=== PATIENT | female | born 1970 | race Hispanic/Latino ===

== ENCOUNTER 2019-10-20 20:22 | Inpatient (IN) | payer OTHER ==
[~2019-10-20] VITALS: Ht 152.4 cm; Wt 27.7 kg
[2019-10-20 20:59] LABS: BASOPHILS % (AUTO) 0.5 % (0.0-5.0); EOSINOPHILS % (AUTO) 0.3 % (0.0-8.0); HEMATOCRIT 23.6 % (36-48); LYMPHOCYTES % (AUTO) 4.2 % (21.0-51.0); MEAN CORPUSCULAR HEMOGLOBIN 27.7 pg (27.0-33.0); MEAN CORPUSCULAR HGB CONC 31.8 g/dL (32.0-36.0); MEAN CORPUSCULAR VOLUME 87.1 fL (79-99); MONOCYTES % (AUTO) 5.8 % (3.0-13.0); NEUTROPHILS % (AUTO) 88.5 % (40.0-77.0); PLATELET COUNT (AUTO) 158 K/uL (130-400); RED BLOOD CELL COUNT(AUTO) 2.71 MIL/uL (4.00-5.50); RED CELL DISTRIBUTION WIDTH 19.2 % (11.0-15.5); WHITE BLOOD COUNT (AUTO) 18.9 K/uL (4.8-10.8)
[2019-10-20 21:10] LABS: INR 0.99 (0.85-1.15); PARTIAL THROMBOPLASTIN TIME 33.6 SEC (26.3-35.5); PROTHROMBIN TIME 10.7 SEC (9.6-11.6)
[2019-10-20 21:20] LABS: RETICULOCYTE % (AUTO) 0.16 % (0.42-2.23)
[2019-10-20 21:26] LABS: % IRON SATURATION 4.1 % (22-44)
[2019-10-20] MEDS ORDERED: LEVOFLOXACIN 500 MG/D5W 100 ML 100 ML ONE (21:56)
[2019-10-20] MEDS ORDERED: POTASSIUM BICARB/CIT AC 25 MEQ TABLET.EFF ONE (21:56)
[2019-10-20] MEDS ORDERED: PANTOPRAZOLE 40 MG/VIAL ONE (21:57)
[2019-10-20 21:58] LABS: ALBUMIN 1.8 g/dL (3.5-5.0); BILIRUBIN,TOTAL 0.3 mg/dL (0.2-1.0); TOTAL PROTEIN, SERUM 7.3 g/dL (6.0-8.3)
[2019-10-20 23:50] LABS: APPEARANCE,URINE Turbid (CLEAR); BILIRUBIN,URINE Negative (NEGATIVE); COLOR,URINE Yellow (YELLOW); GLUCOSE, URINE (UA) Negative (NEGATIVE); KETONES,URINE Negative (NEGATIVE); LEUKOCYTE ESTERASE ,URINE Large (NEGATIVE); NITRATE,URINE Negative (NEGATIVE); OCCULT BLOOD,URINE Large (NEGATIVE); PH,URINE 7.5 (5.0-8.0); PROTEIN,URINE POS 2+ mg/dL (NEGATIVE)
[2019-10-20 23:58] LABS: BACTERIA,URINE Many /HPF (None Seen); MUCUS,URINE Rare LPF (None Seen); SQUAMOUS EPITHELIAL CELL,UR Rare /HPF (0-2)
[2019-10-21] VITALS (12 sets, daily range): BP systolic 86–114; BP diastolic 50–67
[2019-10-21 00:07] LABS: ABG BASE EXCESS -6.6 mmol/L (-2.0-3.0); ABG PCO2 29 mmHg (32-45)
[2019-10-21] MEDS ORDERED: ALBUMIN (HUMAN) 25% 50 ML IV ONE (00:34)
[2019-10-21] MEDS ORDERED: ACETAMINOPHEN 325 MG TAB ONE ×3 (00:54→12:34)
[2019-10-21] MEDS: LACTATED RINGERS 1000ML 1,000 ML IV SCH ×2 (01:07→06:50)
[2019-10-21] MEDS: METRONIDAZOLE 500MG/100ML BAG 100 ML IVPB SCH ×3 (01:15→16:16)
[2019-10-21] MEDS ORDERED: DiphenhydrAMINE HCL 50 MG/ML VIAL IV PRN (01:15)
[2019-10-21] MEDS ORDERED: ONDANSETRON HCL 4 MG/2 ML VIAL IV PRN (01:15)
[2019-10-21] MEDS ORDERED: ACETAMINOPHEN 325 MG TAB PO PRN ×2 (01:15)
[2019-10-21] MEDS ORDERED: MAG HYDROX/AL HYDROX/SIMETH 30 ML, LIDOCAINE HCL 2% VISCOUS 30 ML, DIPHENHYDRAMINE HCL ... PO PRN ×3 (01:15)
[2019-10-21] MEDS ORDERED: GUAIFENESIN-DM 200/20 MG 10 ML PO PRN (01:15)
[2019-10-21] MEDS ORDERED: ZOLPIDEM TARTRATE 5 MG TAB PO PRN (01:15)
[2019-10-21] MEDS ORDERED: VANCOMYCIN PROTOCOL PER PHARMACY IV SCH (01:15)
[2019-10-21] MEDS ORDERED: LIDOCAINE HCL 2% VISCOUS 30 ML, MAG HYDROX/AL HYDROX/SIMETH 30 ML, BELLADONNA-PHENOBARB... PO PRN ×3 (01:15)
[2019-10-21] MEDS ORDERED: NITROGLYCERIN 0.4 MG SL TAB SL PRN (01:15)
[2019-10-21] MEDS ORDERED: DIPHENHYDRAMINE HCL 25 MG CAPSULE PO PRN (01:15)
[2019-10-21] MEDS ORDERED: LACTULOSE 20 GM/30 ML UDCUP PO PRN (01:15)
[2019-10-21] MEDS ORDERED: MAG HYDROX/AL HYDROX/SIMETH ES 30 ML SUSP UDCUP PO PRN (01:15)
[2019-10-21] MEDS ORDERED: CEFEPIME 2 GM in SODIUM CHLORIDE 0.9% 100 ML IV SCH (01:15)
[2019-10-21] MEDS ORDERED: NOREPINEPHRINE 4MG/NS 250ML 250 ML IV ONE ×3 (02:01→14:20)
[2019-10-21] MEDS ORDERED: CEFEPIME HCL 2 GM VIAL ONE ×2 (02:34→10:46)
[2019-10-21] MEDS ORDERED: LORAZEPAM 2 MG/ML 1 ML VIAL ONE (03:32)
[2019-10-21] MEDS ORDERED: DILTIAZEM HCL 125 MG/25 ML VIAL IV ONE (03:33)
[2019-10-21] MEDS ORDERED: IBUPROFEN 600 MG TABLET ONE (04:44)
[2019-10-21] MEDS ORDERED: DILTIAZEM HCL 5 MG/ML 5 ML VIAL IVP PRN (05:00)
[2019-10-21] MEDS ORDERED: DIATR MEGLU/DIATRIZOATE SODIUM 30 ML BOTTLE ONE (05:26)
[2019-10-21 05:54] LABS: % IRON SATURATION 7.8 % (22-44)
[2019-10-21] MEDS ORDERED: METRONIDAZOLE 500MG/100ML BAG 100 ML ONE (05:57)
[2019-10-21] MEDS: CEFEPIME HCL 2 GM VIAL IVP SCH ×3 (06:00→21:16)
[2019-10-21 06:17] LABS: BASOPHILS % (AUTO) 0.8 % (0.0-5.0); EOSINOPHILS % (AUTO) 0.3 % (0.0-8.0); HEMATOCRIT 29.9 % (36-48); LYMPHOCYTES % (AUTO) 1.9 % (21.0-51.0); MEAN CORPUSCULAR HEMOGLOBIN 28.4 pg (27.0-33.0); MEAN CORPUSCULAR HGB CONC 32.1 g/dL (32.0-36.0); MEAN CORPUSCULAR VOLUME 88.5 fL (79-99); MONOCYTES % (AUTO) 0.7 % (3.0-13.0); NEUTROPHILS % (AUTO) 95.8 % (40.0-77.0); PLATELET COUNT (AUTO) 62 K/uL (130-400); RED BLOOD CELL COUNT(AUTO) 3.38 MIL/uL (4.00-5.50); RED CELL DISTRIBUTION WIDTH 16.9 % (11.0-15.5); WHITE BLOOD COUNT (AUTO) 15.5 K/uL (4.8-10.8)
[2019-10-21] MEDS ORDERED: IOHEXOL 350 MG/ML 100ML INFUS..BTL IV ONE (08:42)
[2019-10-21] MEDS: FAMOTIDINE/PF 20 MG/2 ML VIAL IV SCH ×2 (09:00→21:16)
[2019-10-21 09:53] LABS: EOSINOPHILS % (AUTO) 0.3 % (0.0-8.0); HEMATOCRIT 28.5 % (36-48); LYMPHOCYTES % (AUTO) 1.3 % (21.0-51.0); MEAN CORPUSCULAR HEMOGLOBIN 28.9 pg (27.0-33.0); MEAN CORPUSCULAR HGB CONC 33.7 g/dL (32.0-36.0); MEAN CORPUSCULAR VOLUME 85.8 fL (79-99); MONOCYTES % (AUTO) 4.1 % (3.0-13.0); NEUTROPHILS % (AUTO) 91.6 % (40.0-77.0); PLATELET COUNT (AUTO) 66 K/uL (130-400); RED BLOOD CELL COUNT(AUTO) 3.32 MIL/uL (4.00-5.50); RED CELL DISTRIBUTION WIDTH 17.2 % (11.0-15.5)
[2019-10-21 10:02] LABS: WHITE BLOOD COUNT (AUTO) 34.1 K/uL (4.8-10.8)
[2019-10-21 10:11] LABS: ALBUMIN 1.4 g/dL (3.5-5.0); BILIRUBIN,TOTAL 1.3 mg/dL (0.2-1.0); CREATININE 0.8 mg/dL (0.5-1.5); TOTAL PROTEIN, SERUM 5.4 g/dL (6.0-8.3)
[2019-10-21 10:23] LABS: BAND NEUTROPHILS % (MANUAL) 19 % (0-2); MAN.DIFF COMMENT-IMPRESSION MANUAL DIFFERENTIAL; MONOCYTES % (MANUAL) 4 % (2-9); PLATELET MORPHOLOGY COMMENT DECREASED; SEGMENTED NEUTROPHILS % 77 % (40-70)
[2019-10-21] MEDS ORDERED: OCTREOTIDE ACETATE 1,250 MCG in SODIUM CHLORIDE 0.9% 250 ML IV SCH (11:35)
[2019-10-21] MEDS ORDERED: DILTIAZEM 125MG+100 ML NS 125 ML IV SCH (11:45)
[2019-10-21] MEDS ORDERED: COMPOUND IV MISC 1 EACH IVSOLN MISC PRN (12:45)
[2019-10-21] MEDS ORDERED: COMPOUND IV REFRIGERATED 1 EACH IVSOLN MISC PRN (12:45)
--- NOTE | 2019-10-21 12:48 | NUR ---
YAEL NOTE/IA UNABLE TO MEET WITH PATIENT IN ROOM, NEXT OF KIN CALLED, COLBY CISNEROS. PER SIBLING, PATIENT LIVES WITH FAMILY, IS DEPENDENT WITH ADLS, BED BOUND, NO DME, AND HAS USE OF [facility] [address]. PER PATIENT, OK WITH RECEIVING PATIENT BACK HOME ONCE DISCHARGED AND STABLE. Addendum: 10/21/19 at 1712 by ISRAEL DRISCOLL RN CM Amended: Links added.
[2019-10-21] MEDS ORDERED: PANTOPRAZOLE 40 MG/VIAL ONE (13:21)
[2019-10-21] MEDS ORDERED: SODIUM CHLORIDE 0.9% 100 ML IV ONE (13:22)
[2019-10-21] MEDS: VANCOMYCIN 500MG+NS 100ML 100 ML IV SCH ×2 (15:06→21:14)
[2019-10-21] MEDS: VASOPRESSIN 20 UNITS in SODIUM CHLORIDE 0.9% 100 ML IV SCH (17:44)
[2019-10-21] MEDS: NOREPINEPHRINE 4MG/NS 250ML 250 ML IV PRN (17:49)
[2019-10-21] MEDS: PANTOPRAZOLE SODIUM 80 MG in SODIUM CHLORIDE 0.9% 100 ML IV SCH (18:55)
[2019-10-21] MEDS ORDERED: LACTATED RINGERS 1000ML 2,000 ML IV ONE (19:55)
[2019-10-21 20:46] LABS: HEMATOCRIT 31.1 % (36-48)
[2019-10-21] MEDS: BISACODYL 10 MG SUPP.RECT RC SCH (21:15)
[2019-10-21] MEDS: FENTANYL CITRATE PF 50 MCG/1 ML 2ML VIAL IVP PRN (23:12)
--- NOTE | 2019-10-21 23:45 | NUR ---
Nurse performed Manual Disimpaction. VSS. Large amount of stool collected. Will continue to monitor patient.
[2019-10-22] VITALS (43 sets, daily range): BP systolic 90–131; BP diastolic 41–70
[2019-10-22] MEDS: METRONIDAZOLE 500MG/100ML BAG 100 ML IVPB SCH ×2 (01:21→08:08)
[2019-10-22 03:30] LABS: BASOPHILS % (AUTO) 0.4 % (0.0-5.0); EOSINOPHILS % (AUTO) 0.6 % (0.0-8.0); HEMATOCRIT 30.1 % (36-48); LYMPHOCYTES % (AUTO) 5.4 % (21.0-51.0); MEAN CORPUSCULAR HEMOGLOBIN 29.4 pg (27.0-33.0); MEAN CORPUSCULAR HGB CONC 34.9 g/dL (32.0-36.0); MEAN CORPUSCULAR VOLUME 84.3 fL (79-99); MONOCYTES % (AUTO) 3.9 % (3.0-13.0); NEUTROPHILS % (AUTO) 88.3 % (40.0-77.0); PLATELET COUNT (AUTO) 103 K/uL (130-400); RED BLOOD CELL COUNT(AUTO) 3.57 MIL/uL (4.00-5.50); RED CELL DISTRIBUTION WIDTH 16.3 % (11.0-15.5); WHITE BLOOD COUNT (AUTO) 19.8 K/uL (4.8-10.8)
[2019-10-22 03:41] LABS: ALBUMIN 1.9 g/dL (3.5-5.0); BILIRUBIN,TOTAL 1.3 mg/dL (0.2-1.0); TOTAL PROTEIN, SERUM 6.1 g/dL (6.0-8.3)
[2019-10-22 03:44] LABS: POTASSIUM 2.6 mmol/L (3.5-5.1)
[2019-10-22] MEDS: CEFEPIME HCL 2 GM VIAL IVP SCH ×2 (05:27→13:01)
[2019-10-22] MEDS: VANCOMYCIN 500MG+NS 100ML 100 ML IV SCH (08:10)
[2019-10-22] MEDS: FAMOTIDINE/PF 20 MG/2 ML VIAL IV SCH ×2 (08:20→20:50)
[2019-10-22] MEDS: LIDOCAINE HCL-MPF 1% 2ML VIAL IV PRN ×2 (08:20→09:36)
[2019-10-22] MEDS: POTASSIUM CHLORIDE 10MEQ/100ML 100 ML IV PRN ×4 (08:20→15:30)
[2019-10-22] MEDS: NOREPINEPHRINE 4MG/NS 250ML 250 ML IV PRN (08:21)
[2019-10-22] MEDS: VASOPRESSIN 20 UNITS in SODIUM CHLORIDE 0.9% 100 ML IV SCH ×2 (09:39→19:13)
[2019-10-22] MEDS ORDERED: ALEN70TA10 PO (12:28)
[2019-10-22] MEDS ORDERED: CYAN-35 PO (12:28)
[2019-10-22] MEDS ORDERED: SULF500T49 PO (12:28)
[2019-10-22] MEDS ORDERED: FAMO20TA8 PO (12:28)
[2019-10-22] MEDS ORDERED: HYDR-4060 PO (12:28)
[2019-10-22] MEDS ORDERED: NOREPINEPHRINE 4MG/NS 250ML 250 ML IV SCH (12:30)
[2019-10-22] MEDS: HYDROCORTISONE SOD SUCCINATE 100 MG/2 ML VIAL IV SCH ×2 (12:55→17:24)
[2019-10-22] MEDS ORDERED: LACTATED RINGERS 1000ML 1,000 ML IV SCH (13:00)
[2019-10-22] MEDS: PANTOPRAZOLE SODIUM 80 MG in SODIUM CHLORIDE 0.9% 100 ML IV SCH (14:09)
[2019-10-22] MEDS: MEROPENEM 1 GM VIAL IVP SCH ×2 (14:53→20:50)
[2019-10-22] MEDS: D5W-1/2 NS/20MEQ KCL 1,000 ML IV SCH (15:06)
[2019-10-22] MEDS ORDERED: POTASSIUM CHLORIDE 10MEQ/100ML 10 MEQ/100 ML ML IV SCH (16:45)
--- NOTE | 2019-10-22 17:17 | NUR ---
Assessment Patient lives with her spouse, Allan Guerra, [phone] and her three children - ages 17yr old son, 19 yr old daughter, & 25 yr old son. She has no home services. DME: wheelchair. Patient is unable to complete ADL's or eat without assistance. She does not drive. Patient's sister, Stefani Leal comes in the morning to bathe, change and feed patient. Her daughter, Andie, helps care for her during the day, and another one of patient's sisters comes in the evening to change her and stays with her overnight. Patient has no PCP but does see a Rheumotologist in [place], Dr. Cierra Dupont. Pharmacy is [facility] in [place] as per spouse. DCP is to sister's house not to her home. Patient has no insurance or benefits. She is not a [place] citizen or legal resident. Patient's spouse educated on [facility] $4 medication program and HE $5 medication program. Patient is being assisted by [employer] for financial matters. Addendum: 10/22/19 at 1729 by PEMA HILLS SS Spouse informed SW that patient has always been very petite. He stated that patient has poor appetite and has been given Megace to help boost her hunger.
--- NOTE | 2019-10-22 17:26 | NUR ---
EMERGENCY CONTACTS FLAKO CUTLER (SPOUSE) - [phone] COLBY MONTEROILLO (SISTER) - [phone]
[2019-10-22] MEDS: FENTANYL CITRATE PF 50 MCG/1 ML 2ML VIAL IVP PRN ×2 (17:41→20:50)
--- NOTE | 2019-10-22 20:08 | NUR ---
COVID-19 RESULT: POSITIVE.
[2019-10-22] MEDS: BISACODYL 10 MG SUPP.RECT RC SCH (20:42)
--- NOTE | 2019-10-22 21:30 | NUR ---
PATIENT TRANSPORTED TO ROOM 213. REPORT GIVEN TO LINDEN BEGUM
[2019-10-23] VITALS (47 sets, daily range): BP systolic 84–169; BP diastolic 28–115
[2019-10-23] MEDS: PANTOPRAZOLE SODIUM 80 MG in SODIUM CHLORIDE 0.9% 100 ML IV SCH (00:24)
[2019-10-23] MEDS: HYDROCORTISONE SOD SUCCINATE 100 MG/2 ML VIAL IV SCH ×4 (00:24→18:24)
[2019-10-23 04:25] LABS: BASOPHILS % (AUTO) 0.2 % (0.0-5.0); EOSINOPHILS % (AUTO) 0.1 % (0.0-8.0); HEMATOCRIT 28.4 % (36-48); LYMPHOCYTES % (AUTO) 6.9 % (21.0-51.0); MEAN CORPUSCULAR HEMOGLOBIN 28.1 pg (27.0-33.0); MEAN CORPUSCULAR HGB CONC 33.1 g/dL (32.0-36.0); MONOCYTES % (AUTO) 2.5 % (3.0-13.0); NEUTROPHILS % (AUTO) 89.4 % (40.0-77.0); PLATELET COUNT (AUTO) 109 K/uL (130-400); RED BLOOD CELL COUNT(AUTO) 3.34 MIL/uL (4.00-5.50); RED CELL DISTRIBUTION WIDTH 17.5 % (11.0-15.5); WHITE BLOOD COUNT (AUTO) 12.3 K/uL (4.8-10.8)
[2019-10-23 04:47] LABS: ALBUMIN 1.7 g/dL (3.5-5.0); BILIRUBIN,TOTAL 0.6 mg/dL (0.2-1.0); CREATININE 1.1 mg/dL (0.5-1.5); MAGNESIUM 1.4 mg/dL (1.80-2.40); POTASSIUM 3.5 mmol/L (3.5-5.1); TOTAL PROTEIN, SERUM 5.9 g/dL (6.0-8.3)
[2019-10-23] MEDS: MEROPENEM 1 GM VIAL IVP SCH ×3 (05:18→21:45)
[2019-10-23] MEDS: D5W-1/2 NS/20MEQ KCL 1,000 ML IV SCH ×2 (05:18→17:32)
[2019-10-23] MEDS: FENTANYL CITRATE PF 50 MCG/1 ML 2ML VIAL IVP PRN (09:05)
[2019-10-23] MEDS: FAMOTIDINE/PF 20 MG/2 ML VIAL IV SCH ×2 (09:06→21:00)
[2019-10-23] MEDS ORDERED: MAGNESIUM 2GM PREMIX 50ML 50 ML IV PRN (10:00)
[2019-10-23] MEDS: INSULIN HUMULIN R 100 UNIT/ML 3ML SQ SCH ×3 (11:30→21:00)
[2019-10-23] MEDS ORDERED: POTASSIUM PHOS 15 mMOL+NS250ML 250 ML IV SCH (12:00)
[2019-10-23] MEDS ORDERED: LACTATED RINGERS 1000ML IV SCH (13:30)
[2019-10-23 15:09] LABS: PARTIAL THROMBOPLASTIN TIME 43.7 SEC (26.3-35.5)
--- NOTE | 2019-10-23 15:30 | NUR ---
picc unable to insert picc line , pt very contracted difficult to advance wire. attempted multiple times , repositioning her arm. (right ARM) unsuccessfu. report given to Yon KEENAN. orders received to insert central line per primary nurse Yon. spoke to patients siSter Stefani Russo [phone] she stated she is not consenting for central line . She stated patient had refuse central line before in the ER when she was awake and alert oriented x3. Stefani stated she wanted to respect her sisters wishes. She stated "lines in her arms are OK. but that is it. informed her the reason for central line and how picc line was unsuccessful she still stated she didnt consent for central line. Primary nurse Yon keenan and CHarge NUrse Snehal Keenan notified.
[2019-10-23] MEDS ORDERED: ALBUMIN (HUMAN) 25% 50 ML IV SCH (21:00)
[2019-10-23] MEDS: BISACODYL 10 MG SUPP.RECT RC SCH (21:00)
[2019-10-24] MEDS: HYDROCORTISONE SOD SUCCINATE 100 MG/2 ML VIAL IV SCH (00:10)
[2019-10-24 01:26] VITALS: BP 116/85
[2019-10-24 01:54] VITALS: BP 149/105
[2019-10-24 02:53] VITALS: BP 142/72
[2019-10-24 03:09] VITALS: BP 150/74
--- NOTE | 2019-10-24 03:40 | NUR ---
Pt heart rate dropped into the 30's and then lost her pulse. electrical maintenance supervisor and I did final checks via auscultation of heart tones to confirm.
--- NOTE | 2019-10-24 03:50 | NUR ---
Called family to notify them of pt passing away several times. Voicemail not set up.
--- NOTE | 2019-10-24 03:53 | NUR ---
Notified Dr. Godwin of pt's .
--- NOTE | 2019-10-24 04:02 | NUR ---
Placed phone call to family still unble to reach them. Will try again.
--- NOTE | 2019-10-24 04:29 | NUR ---
Call placed to sister Stefani via vat house supervisor due to french speaking only. No answer and unable to leave voicemail.
--- NOTE | 2019-10-24 14:59 | NUR ---
0840 CALL plcace to sister Stefani Leal inform of pt time of . heart broke crying states i spoke to some one at midnight the nurse told me she was stable [address] to spouse no response [address] to spouse no response . 09 Elaine Leal call back she will give spouse massage to call back. 09 spouse Allan Guerra call back inform of time of autopy declined states she has already suffer to much, inform to call back with arrangements verbalized understanding. 1055 niece Marilee call requesting face time with family inform it would need to be arranged in the morgue face only but spouse would be the one consenting and the only one that would be allow to come in states she will speak to him and would call back. Abundio hardy
--- NOTE | 2019-10-24 16:11 | NUR ---
[phone] Call received from [facility] to [facility] here with arrangement mis Mortensen [phone] inform of face time he would need to use his phone verbalized understanding , he declined the face time. Abundio hardy
== END 2019-10-24 03:40 | disposition expired | DRG 177 ==
LOC: EDH 20:22 → EDHIP 20:23 → DAHIP 10-21 15:32 → 2CV 10-22 21:10
PROVIDERS: ADMIT Internal Medicine; ATTEND Internal Medicine
PROC: 30233R1 Transfusion of Nonautologous Platelets into Peripheral Vein, Percutaneous Approach (ICD-10-PCS; principal; 2019-10-20)
PROC: 30233N1 Transfusion of Nonautologous Red Blood Cells into Peripheral Vein, Percutaneous Approach (ICD-10-PCS; 2019-10-20)
PROC: XW13325 Transfusion of Convalescent Plasma (Nonautologous) into Peripheral Vein, Percutaneous Approach, New Technology Group 5 (ICD-10-PCS; 2019-10-21)
DX: U07.1 COVID-19 (principal); A41.9 Sepsis, unspecified organism; R65.21 Severe sepsis with septic shock; E43 Unspecified severe protein-calorie malnutrition; R53.2 Functional quadriplegia; G93.41 Metabolic encephalopathy; N10 Acute pyelonephritis; E87.1 Hypo-osmolality and hyponatremia; Z68.1 Body mass index [BMI] 19.9 or less, adult; E87.0 Hyperosmolality and hypernatremia; R64 Cachexia; N19 Unspecified kidney failure; E87.6 Hypokalemia; M06.9 Rheumatoid arthritis, unspecified; E86.1 Hypovolemia; L98.429 Non-pressure chronic ulcer of back with unspecified severity; B96.89 Other specified bacterial agents as the cause of diseases classified elsewhere; D63.8 Anemia in other chronic diseases classified elsewhere; D69.6 Thrombocytopenia, unspecified; E83.42 Hypomagnesemia; G89.4 Chronic pain syndrome; K56.41 Fecal impaction; M19.90 Unspecified osteoarthritis, unspecified site; R57.0 Cardiogenic shock; Z66 Do not resuscitate; Z74.01 Bed confinement status
CPT/HCPCS: 36415; 36430; 36600; 71045; 74018; 74174; 80053; 80202; 81001; 82270; 82607; 82728; 82803; 82948; 83540; 83550; 83605; 83615; 83735; 84100; 84132; 85014; 85018; 85025; 85610; 85730; 86850; 86900; 86901; 86922; 86923; 86927; 87040; 87077; 87088; 87186; 87426; 93005; 99291; C9113; G0378; J0692; J1720; J1815; J1956; J2060; J2185; J2354; J2405; J3010; J3370; J3475; J3480; J3490; J7050; J7120; P9016; P9017; P9034; P9047; Q9963; Q9967; U0003